=== PATIENT | female | born 1985 | race Caucasian/White ===

== ENCOUNTER 2020-04-09 11:47 | Emergency (ER) | payer MEDICAID ==
[~2020-04-09] VITALS: Ht 154.9 cm; Wt 63.5 kg
[2020-04-09 11:49] VITALS: BP 114/75; Ht 154.9 cm; Wt 63.5 kg
== END 2020-04-09 13:36 | disposition home or self-care (01) ==
LOC: ED 11:47
DX: U07.1 COVID-19 (principal); B34.9 Viral infection, unspecified

== ENCOUNTER 2020-05-29 16:59 | Emergency (ER) | payer MEDICAID ==
[~2020-05-29] VITALS: Ht 165.1 cm; Wt 53.1 kg
[2020-05-29 17:22] VITALS: Ht 165.1 cm; Wt 53.1 kg
[2020-05-29 19:23] LABS: UA SPECIFIC GRAVITY <=1.005 (1.005-1.035); microscopic required? YES; urine erythrocyte 1+ (NEGATIVE)
[2020-05-29 19:34] LABS: BASOPHIL % 0.3 % (0-2); PLATELET COUNT 258 x10^3mcL (130-400); RED CELL DISTRIBUTION WIDTH 14.4 % (11.5-14.5)
[2020-05-29 19:51] LABS: CALCIUM 9.2 mg/dL (8.5-10.1); CARBON DIOXIDE 24.8 mmol/L (21-32); CHLORIDE SERUM 95 mmol/L (98-107); CREATININE SERUM 0.8 mg/dL (0.6-1.0); GFR1 > 60 mL/min; GLUCOSE SERUM 95 mg/dL (74-106); SODIUM SERUM 129 mmol/L (136-145)
[2020-05-29 19:55] LABS: ALKALINE PHOSPHATASE 95 U/L (46-116); ALT/SGPT 25 U/L (14-59); AST/SGOT 27 U/L (15-37); BILIRUBIN TOTAL 0.6 mg/dL (0.20-1.00); TOTAL PROTEIN, SERUM 7.2 g/dL (6.4-8.2)
[2020-05-29 21:55] VITALS: BP 112/80
== END 2020-05-29 21:55 | disposition home or self-care (01) ==
LOC: ED 16:59
PROVIDERS: Emergency Medicine
DX: K52.9 Noninfective gastroenteritis and colitis, unspecified (principal)
CPT/HCPCS: J1885; J7030